=== PATIENT | female | born 1940 | race Caucasian/White ===

== ENCOUNTER 2019-01-04 08:42 | Emergency (ER) | payer MEDICARE ==
--- OUTSIDE RECORDS SUMMARY | 2019-01-04 08:59 | XMS REPORT | Continuity of Care Document ---
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 Provider Date Hyperlipidemia Penny Barton MD Onset: 11/04/2017 Sarcoidosis Penny Barton MD Onset: 11/04/2017 Chronic atrial fibrillation Drew Wilson M.D., [facility] Onset: 03/19/2018 Social History Type Date Description Comments Sex Unknown Tobacco Use Start: Unknown Never Smoked Cigarettes Did try when she was young Smoking Status Reviewed: 11/19/18 Never Smoked Cigarettes Did try when she was young ETOH Use Rarely consumes alcohol Recreational Drug Use Denies Drug Use Tobacco Use Start: Unknown Patient denies history of smoking Exercise Type/Frequency Exercises regularly Allergies, Adverse Reactions, Alerts Active Allergies Reaction Severity Comments Date Adhesives Rash and blisters 11/05/2016 Environmental 11/04/2017 Montelukast unable to sleep 03/16/2018 Medications Active Medications SIG Qnty Indications Ordering Date Provider Freestyle Lite Blood fasting bs in am. 1units E11.9 Mick, Penny, 2018 Glucose Monitoring blood sugar 2 MD System hour after meals Device twice daily dx: e11.9 Freestyle Lancets fasting bs in am. 100units E11.9 Mick, Penny, 2018 2 hour after MD Misc meals twice daily dx: e11.9 Freestyle Lite Test fasting bs in am. 100units E11.9 Mick, Penny, 2018 blood sugar 2 MD Strips hour after meals twice daily dx: e11.9 Temazepam take one capsule 30caps G47.09 Mick, Penny, 08/25/2018 7.5mg at night for MD Capsules sleep as needed ref # [id number] Cetirizine HCL one daily by 30tabs J30.89 Kimani Munoz MD 06/30/2018 10mg mouth Tablets Eliquis Take One Tablet 60tabs Drew Wilson 03/19/2018 5mg Tablets By Mouth Twice A M.Rudy, [facility] Day Omeprazole 1 by mouth every 90caps Gagen, 20mg day MS Xochilt, Capsules DR MOBLEY, [facility] Lovastatin Take One Tablet 90tabs Mick, Penny, 20mg By Mouth Every MD Tablets Day Furosemide take one tablet 90tabs Mick, Penny, 20mg by mouth every MD Tablets day Fluticasone spray two sprays 16gm Kimani Munoz MD Propionate in each nostril 50mcg/Act twice daily Suspension History Medications Amoxicillin 1 tab by mouth 20tabs J01.90 Mick, Penny, 05/27/2018 - 875mg twice a day 06/16/2018 Tablets Medications Administered in Office Medication SIG Qnty Indications Ordering Provider Date Methylprednisolone acetate Reshma Carroll, 08/14/2017 (Depomedrol) 80mg injection [facility] Injection Depomedrol 40mg/1cc Reshma Carroll, 11/05/2016 (methylprednisolone acetate) [facility] Injection Immunizations Description No Information Available Vital Signs Date Vital Result Comment 11/19/2018 11:08am BP Systolic 121 mmHg BP Diastolic 75 mmHg Body Temperature 97.4 F Heart Rate 81 /min Respiratory Rate 18 /min Height 64.5 inches 5'4.50" Weight 165.25 lb BMI (Body Mass Index) 27.9 kg/m2 BSA (Body Surface Area) 1.81 m2 [place] body weight in kilograms 56 kg O2 % BldC Oximetry 99 % Ra 09/25/2018 10:12am BP Systolic Sitting Right Arm 106 mmHg BP Diastolic Sitting Right Arm 58 mmHg Body Temperature 97.0 F Heart Rate 82 /min Respiratory Rate 20 /min Height 64.5 inches 5'4.50" Weight 160.00 lb BMI (Body Mass Index) 27.0 kg/m2 BSA (Body Surface Area) 1.79 m2 Castana body weight in kilograms 56 kg O2 % BldC Oximetry 98 % ra Results Test Date Facility Test Result H/L Range Note Glycohemoglobin A1c [facility] Glycohemoglobin 6.4 % High 4.2-6.3 1 , [address] (A1c) [place], [place] [id number] [phone] eAG 137 mg/dL Urine Dipstick 08/25/2018 [facility] Ua Color yellow Yellow Ua Clarity clear Clear Ua Leuko negative Negative Ua Nitrite negative Negative Ua Urobilinogen negative Low 0.2 - 1.0 E.U./dL Ua Protein negative Negative Ua PH 5.0 Low 6.5-7.5 Ua Blood negative Negative Ua Specific [place] 1.015 1.010-1.030 Ua Ketones negative Negative Ua Bilirubin negative Negative Ua Glucose negative Negative Microalb/Creat 08/25/2018 [facility] Microalbumin/Creatinine TNP < 3, Ratio,Random [address] Ratio ug/mgCrt 30.0 4 [place] [address] [phone] Urine Creatinine Conc 10 mg/dL Microalbumin,Random 08/25/2018 [facility] Microalbumin,Urine < 5.0 < Urine [address] mg/L 20.0 [place] [address] [phone] Glycohemoglobin A1c 07/29/2018 [facility] Glycohemoglobin 6.5 % High 4.2-6 5, [address] (A1c) .3 6 [place] [address] [phone] eAG 140 mg/dL Comprehensive 07/29/2018 [facility] Glucose 103 mg/dL Normal 74-106 Metabolic Panel [address] [place] [address] [phone] BUN 13 mg/dL Normal 7-18 Creatinine 0.8 mg/dL Normal 0.6-1.3 Glom Filtration Rate, Estimate >60 mL/min >60 If >60 mL/min >60 7 BUN/Creat 16.2 ratio Sodium 140 mmol/L Normal 136-145 Potassium 3.8 mmol/L Normal 3.5-5.1 Chloride 105 mmol/L Normal 98-107 Carbon Dioxide 30 mmol/L Normal 21-32 Anion Gap 5 mEq/L Low 8-16 Calcium 9.3 mg/dL Normal 8.5-10.1 Total Protein 7.1 g/dL Normal 6.4-8.2 Albumin 3.7 g/dL Normal 3.4-5.0 Globulin 3.4 g/dL Normal 1.9-4.3 Alb/Glob 1.1 ratio Bilirubin,Total 0.6 mg/dL Normal 0.2-1.0 Sgot/Ast 19 U/L Normal 15-37 SGPT/Alt 22 U/L Normal 12-78 Alkaline Phosphatase 90 U/L Normal 45-117 LDL Cholesterol Profile 07/29/2018 [facility] Cholesterol 146 mg/dL <[address] [place], [place] [id number] [phone] Triglycerides 86 mg/dL <150 9 HDL Cholesterol 75 mg/dL >40 10 LDL-Cholesterol 54 mg/dL < 100 11 Reflex add FT3? N Reflex add FT4? Y CBC W/Automated 07/29/2018 [facility] White Blood 3.9 K/uL Normal 3.1-10.[address] Count [place], [place] [id number] [phone] Red Blood Count 4.57 M/uL Normal 3.90-5.40 Hemoglobin 13.1 gm/dL Normal 11.6-15.8 Hematocrit 39.5 % Normal 36.0-46.1 Mean Cell Volume 86.4 fl Normal 80.9-99.0 Mean Corpuscular HGB 28.7 pg Normal 25.9-32.7 Mean Corpuscular HGB Conc 33.2 g/dL Normal 30.8-34.3 Platelet Count 195 K/uL Normal 155-360 Red Cell Distri Width SD 46.9 fl Normal 36-47 Red Cell Distri Width %CV 14.8 % High 11.7-14.4 Mean Platelet Volume 12.7 fl High 8.9-12.4 Neut% 50.9 % Normal 40.4-72.8 Lymph % 31.2 % Normal 20.0-42.0 Gila % 7.4 % Normal 4.3-13.2 Eo% 8.9 % High 0.0-6.6 Bas% 1.3 % High 0.0-1.1 Immature Grans 0.3 % Normal 0.0-5.0 NRBC % 0.0 /100WBC < 10/ 100 WBC Neut# 2.01 K/uL Normal 1.8-7.0 Lymph # 1.23 K/uL Normal 1.0-4.0 Gila # 0.29 K/uL Low 0.3-0.9 Eos # 0.35 K/uL Normal 0.0-0.5 Baso # 0.05 K/uL Normal 0.0-0.1 Immature Grans Absolute 0.01 K/uL NRBC # 0.00 K/uL TSH Reflex 07/29/2018 [facility] Thyroid Stim 2.37 uIU/mL Normal 0.30-4.20 FT4 And/Or [address] Hormone FT3 [place] [address] [phone] Reflex add FT3? N Reflex add FT4? Y Laboratory 07/29/2018 [facility] Vitamin 50.0 30.0-100.0 12 test finding [address] D,25-Hydroxy ng/[place] [address] [phone] CBC 06/09/2018 N2N/CCD Import WBC 4.0 Low 4.1 - 11.0 10*3/uL RBC 4.05 10*6/uL 4.00 - 5.40 Hemoglobin 11.6 g/dL Low 12.0 - 16.0 Hematocrit 34.3 % Low 36.0 - 47.0 MCV 84.7 fL 80.0 - 95.0 MCH 28.7 pg 27.0 - 32.0 MCHC 33.9 g/dL 32.0 - 36.0 RDW 15.0 % High 10.5 - 14.5 Platelets 136 10*3/uL Low 150 - 450 MPV 10.8 fL High 7.1 - 10.7 Troponin I 06/09/2018 N2N/CCD Import Troponin I <0.06 0.00 - 0.10 ng/mL Basic metabolic 06/09/2018 N2N/CCD Import Sodium 145 mmol/L 136 - 145 panel Potassium 4.1 mmol/L 3.6 - 5.2 Chloride 112 mmol/L High 100 - 108 Co2 26 mmol/L 22 - 31 Anion Gap 7 mmol/L 7 - 16 Urea nitrogen 13 mg/dL 7 - 24 Creatinine 0.73 mg/dL 0.60 - 1.00 BUN/Creatinine Ratio 17.8 10.0 - 20.0 Ratio Glucose 112 mg/dL High 70 - 99 Calcium 8.9 mg/dL 8.4 - 10.2 GFR MDRD Non Af Amer >60 >59 ml/min/1.73m2 GFR MDRD Af Amer >60 >59 ml/min/1.73m2 Glom Filt Rate, Est See Notes Echo Transthoracic (Tte) 06/09/2018 N2N/CCD Import Bsa 1.82 m2 Pt Height 1.64 m Weight 75.75 kg Systolic BP Echo 143.00 mmHg Diastolic BP Echo 83.00 mmHg Av regurgitation pressure 1/2 time 482.00 ms Aortic Regurgitation Peak Velocity 1.94 m/s Ao peak remy 1.74 m/s Av peak gradient 12.00 mmHg Av mean gradient 5.00 mmHg Aortic valve velocity time integral 30.70 cm Aortic valve mean velocity 1.00 m/s Ivs 1.24 cm 0.6 - 1.1 Lvidd 4.04 cm 3.5 - 6.0 Lvids 2.33 cm 2.1 - 4.0 Lvot mn grad 2.0 mmHg Lvot peak Vti 17.10 cm Lvot Mean Remy 0.60 m/s Lvot peak remy 0.91 m/s Av Lvot peak gradient 3.00 mmHg PW 1.22 cm 0.6 - 1.1 MV E' Lateral Tissue Remy 0.11 m/s LV Systolic Volume 12.60 cm3 [place] MR Peak Velocity 0.94 m/s MV peak gradient 8.00 mmHg MV mean gradient 3.00 mmHg MV Vti 44.30 cm pv mean gradient 2.00 mmHg pv Mean Remy 0.62 m/s pv Peak Velocity 0.98 m/s pv peak gradient 4.00 mmHg Right Atrium Pressure 10.00 mmHg RVDD 2.64 cm Estimated r vent sys pressure by tricuspid regurg jet 31.00 mmHg Tricuspid valve peak regurgitation velocity 2.29 m/s Triscuspid Valve Regurgitation Peak Gradient 21.0 mmHg FS 42 % 28 - 44 Ef 72 % Av Velocity Ratio 0.52 LV Systolic Volume Index 6.9 mL/m2 Poct troponin 06/08/2018 N2N/CCD Import Poc Troponin I <0.02 0.00 - 0.10 ng/mL Hepatic function 06/08/2018 N2N/CCD Import Protein, Total 6.7 g/dL 6.4 - 8.2 panel Albumin 3.8 g/dL 3.2 - 4.5 Globulin 2.9 g/dL 2.7 - 4.3 Alb/Glob ratio 1.3 Ratio Bilirubin, Total 0.9 mg/dL 0.0 - 1.0 Bilirubin, Direct 0.2 mg/dL 0.0 - 0.3 Bilirubin, Indirect 0.7 mg/dL 0.0 - 0.7 Alkaline Phosphatase 86 U/L 45 - 117 Ast 24 U/L 11 - 39 Alt 24 U/L 12 - 78 Magnesium 06/08/2018 N2N/CCD Import Magnesium 2.1 mg/dL 1.7 - 2.4 NT-proBNP 06/08/2018 N2N/VasSol Import NT-pro BNP 1718 pg/mL High 0 - 450 CBC w/ diff 06/08/2018 N2N/VasSol Import WBC 4.1 10*3/uL 4.1 - 11.0 RBC 4.32 10*6/uL 4.00 - 5.40 Hemoglobin 12.5 g/dL 12.0 - 16.0 Hematocrit 36.8 % 36.0 - 47.0 MCV 85.2 fL 80.0 - 95.0 MCH 29.1 pg 27.0 - 32.0 MCHC 34.1 g/dL 32.0 - 36.0 RDW 15.1 % High 10.5 - 14.5 Platelets 145 10*3/uL Low 150 - 450 MPV 11.5 fL High 7.1 - 10.7 Neutrophils % 62.4 % 35.0 - 75.0 Lymphocytes Relative 21.3 % 16.0 - 52.0 Monocytes Relative 7.6 % 0.0 - 8.0 Eosinophils Relative 7.3 % High 0.0 - 5.0 Basophils Relative 1.4 % 0.0 - 4.0 Neutrophils Absolute 2.6 10*3/uL 1.8 - 7.7 Lymphocytes Absolute 0.9 10*3/uL Low 1.2 - 4.8 Monocytes Absolute 0.3 10*3/uL 0.0 - 0.8 Eosinophils Man 0.3 10*3/uL 0.0 - 0.5 Basophils Absolute 0.1 10*3/uL 0.0 - 0.2 Poct I-Stat Chem 8 06/08/2018 N2N/CCD Import Poc Sodium 143 136 - 145 Mmol/L Poc Potassium 3.9 3.6 - 5.2 Mmol/L Poc Chloride 107 100 - 108 Mmol/L Poc Co2 24 22 - 31 Mmol/L Poc Anion Gap 12 7 - 16 Mmol/L Poc BUN 8 7 - 24 MG/DL Poc Creatinine 0.6 0.6 - 1.0 MG/DL Poc BUN/Creatinine Ratio 13.3 10.0 - 20.0 Ratio Poc Glucose (iStat) 112 High 70 - 99 MG/DL Poc Ionized Calcium 5.2 4.6 - 5.3 MG/DL Poc GFR >60 >59 ml/min/1.73m2 Poc GFR () >60 >59 ml/min/1.73m2 Poc GFR Interpretation --------- Poc Hematocrit 39 % 36.0 - 47.0 Performed by: Performed By [facility] Clinical Staff 1 E78.5 2 Elevated levels of HbA1c suggest the need for more aggressive treatment of glycemia. The [place] [employer] recommends that a primary goal of therapy should be a HbA1c of <7% and that physicians should re-evaluate the treatment regimen in patients with HbA1c values consistently >8%. 3 E11.9 4 Valid ratio could not be calculated due to non-numeric result. 5 R73.9 E78.5 E04.1 R06.2 I48.91 6 Elevated levels of HbA1c suggest the need for more aggressive treatment of glycemia. The [place] [employer] recommends that a primary goal of therapy should be a HbA1c of <7% and that physicians should re-evaluate the treatment regimen in patients with HbA1c values consistently >8%. 7 Note: Persistent reduction for 3 months or more in an eGFR <60 mL/min/1.73 m2 defines CKD. Patients with eGFR values >/=60 mL/min/1.73 m2 may also have CKD if evidence of persistent proteinuria is present. The original MDRD equation for estimated GFR is not valid for patients less than 18 years of age. Additional information may be found at www.kdoqi.org. 8 Reference Guidelines*: Desirable: ........... < 200 mg/dL Borderline High: ..... 200-239 mg/dL High: ................ >= 240 mg/dL * The National Cholesterol Education Program (NCEP) 9 Reference Guidelines*: Normal: ............. < 150 mg/dL Borderline High: .... 150-199 mg/dL High: ............... 200-499 mg/dL Very High: .......... > 500 mg/dL * Source: National Cholesterol Education Program (NCEP) 10 Reference Guidelines*: Low HDL: ..... < 40 mg/dL Normal: ..... 40-60 mg/dL Desirable: ... > 60 mg/dL *The National Cholesterol Education Program(NCEP) 11 Reference Guidelines*: Optimal:........... <100 mg/dL Near Optimal....... 100-129 mg/dL Borderline High.... 130-159 mg/dL High............... 160-189 mg/dL Very High.......... >=190 mg/dL * Source: National Cholesterol Education Program (NCEP) 12 Vitamin D deficiency has been defined by the [place] [employer] and an Endocrine Society practice guideline as a level of serum 25-OH vitamin D less than 20 ng/mL (1,2). The Endocrine Society went on to further define vitamin D insufficiency as a level between 21 and 29 ng/mL (2). 1. IOM ([place] [employer]). 2010. Dietary reference intakes for calcium and D. [place]: The National Academies Press. 2. Vern MF, Maryam NC, Satya-Jose David BEDOYA, et al. Evaluation, treatment, and prevention of vitamin D deficiency: an Endocrine Society clinical practice guideline. JCEM. 2010; 96(7):1911-30. Performed at: [facility] [address] [id number] Crude Unit Operator: Cleo Garcia MD, Phone: [phone] Procedures Date Code Description Status 06/16/2018 78477 Brief Emotional/Behav Assessment W/ Scoring Doc Per Completed Standard Inst 06/05/2018 60628 Dual Pacemaker Programming Anayisis, Review And Report Completed 05/29/2018 65260 Dual Pacemaker Programming Anayisis, Review And Report Completed 05/20/2018 26032 EKG-Tracing And Report Completed 05/12/2018 [id number] Bone Mineral Density Test Completed 02/24/2017 [id number] Colonoscopy Completed 02/24/2017 [id number] Mammogram Completed 03/01/2015 [id number] Mammogram Completed Medical Devices Description No Information Available Encounters Type Date Location Provider Dx Diagnosis Office Visit 09/25/2018 Primary Care [place], E11.9 Type 2 diabetes 10:30a Office MS Xochilt, mellitus without [facility], CNM complications M25.561 Pain in right knee I83.91 Asymptomatic varicose veins of right lower extremity Z71.9 Counseling, unspecified Office Visit 09/03/2018 10:30a Primary Care Nurse Internal E11.9 Type 2 diabetes Office Med mellitus without complications Z71.89 Other specified counseling Office Visit 08/25/2018 [facility] [place], E78.5 Hyperlipidemia, 10:30a Office MS Xochilt, unspecified [facility], CNM E04.1 Nontoxic single thyroid nodule D86.0 Sarcoidosis of lung G47.33 Obstructive sleep apnea (adult) (pediatric) R06.02 Shortness of breath E11.9 Type 2 diabetes mellitus without complications G47.00 Insomnia, unspecified Office Visit 06/30/2018 10:00a Pulmonology Yue Irving PA J30.89 Other allergic rhinitis D86.0 Sarcoidosis of lung G47.33 Obstructive sleep apnea (adult) (pediatric) Office Visit 06/16/2018 10:00a Primary Care Xochilt Abdul, R06.02 Shortness of Office MS, [facility], CNM breath R07.89 Other chest pain F32.9 Major depressive disorder, single episode, unspecified Office Visit 05/27/2018 11:00a Primary Care [place], J01.90 Acute sinusitis, Office MS Xochilt, unspecified [facility], CNM J06.9 Acute upper respiratory infection, unspecified Office Visit 05/20/2018 Cardiology Lety Brink I48.2 Chronic atrial 2:40p Office YESSICA Grady, fibrillation [facility] Z95.0 Presence of cardiac pacemaker I36.1 Nonrheumatic tricuspid (valve) insufficiency I65.23 Occlusion and stenosis of bilateral carotid arteries Assessments Date Code Description Provider 11/19/2018 R07.0 Pain in throat Hamzah Velez MD 09/25/2018 E11.9 Type 2 diabetes mellitus without GagXochilt durham, , [facility], complications [facility] 09/25/2018 M25.561 Pain in right knee Lesli Abdulpriscila , [facility], CN 09/25/2018 I83.91 Asymptomatic varicose veins of right Xochilt Abdul, , [facility], lower extremity CN 09/25/2018 Z71.9 Counseling, unspecified Xochilt Abdul, , [facility], [facility] 09/03/2018 E11.9 Type 2 diabetes mellitus without Penny Barton MD complications 09/03/2018 E11.9 Type 2 diabetes mellitus without Nurse Internal Med complications 09/03/2018 Z71.89 Other specified counseling Penny Barton MD 09/03/2018 Z71.89 Other specified counseling Nurse Internal Med 08/25/2018 E78.5 Hyperlipidemia, unspecified Xochilt Abdul, , [facility], CN 08/25/2018 E04.1 Nontoxic single thyroid nodule Xochilt Abdul MS, [facility] , [facility] 08/25/2018 D86.0 Sarcoidosis of lung Xochilt Abdul MS, [facility], [facility] 08/25/2018 G47.33 Obstructive sleep apnea (adult) Xochilt Abdul , [facility], (pediatric) [facility] 08/25/2018 R06.02 Shortness of breath Xochilt Abdul, , [facility], CN 08/25/2018 E11.9 Type 2 diabetes mellitus without GagVentura durhamXochilt, MS, [facility], complications [facility] 08/25/2018 G47.00 Insomnia, unspecified [place] Xochilt, , [facility], CN 06/30/2018 J30.89 Other allergic rhinitis Yue Irving PA 06/30/2018 D86.0 Sarcoidosis of lung Yue Irving PA 06/30/2018 G47.33 Obstructive sleep apnea (adult) Yue Irving PA (pediatric) 06/16/2018 R06.02 Shortness of breath Xochilt Abdul MS, [facility], [facility] 06/16/2018 R07.89 Other chest pain Xochilt Abdul MS, [facility], [facility] 06/16/2018 F32.9 Major depressive disorder, single Xochilt Abdul, , [facility], episode, unspecified [facility] 06/05/2018 Z95.0 Presence of cardiac pacemaker Drew Wilson M.D., [facility] 06/05/2018 Z95.0 Presence of cardiac pacemaker Lety Brink MSN, [facility] 06/05/2018 I48.2 Chronic atrial fibrillation Drew Wilson M.D., [facility] 06/05/2018 I48.2 Chronic atrial fibrillation Lety Brink MSN, [facility] 05/29/2018 Z95.0 Presence of cardiac pacemaker Drew Wilson M.D., [facility] 05/29/2018 Z95.0 Presence of cardiac pacemaker Lety Brink, YESSICA, [facility] 05/29/2018 I49.5 Sick sinus syndrome Drew Wilson M.D., [facility] 05/29/2018 I49.5 Sick sinus syndrome Lety Brink MSN, [facility] 05/27/2018 J01.90 Acute sinusitis, unspecified Xochilt Abdul, , [facility], [facility] 05/27/2018 J06.9 Acute upper respiratory infection, Xochilt Abdul, , [facility], unspecified [facility] 05/20/2018 I48.2 Chronic atrial fibrillation Lety Brink MSN, [facility] 05/20/2018 Z95.0 Presence of cardiac pacemaker Lety Brink MSN, [facility] 05/20/2018 I36.1 Nonrheumatic tricuspid (valve) Lety Brink MSN, insufficiency [facility] 05/20/2018 I65.23 Occlusion and stenosis of bilateral BrinkLety kelsey MSN, carotid arteries [facility] Plan of Treatment Future Appointment(s):01/01/2019 10:00 am - Xochilt Abdul MS, [facility], [facility] at [facility] [id number]/30/2019 10:00 am - Yue Irving PA at [id number]/ 26/2019 - Hamzah Velez, MDR07.0 Pain in throatNew Labs:Throat Culture Complete, Ordered: 11/19/18 Functional Status Functional Condition Comment Date Status Independent with all ADL's Active Glasses Active Mental Status Description No Information Available Referrals Description No Information Available
--- OUTSIDE RECORDS SUMMARY | 2019-01-04 08:59 | XMS REPORT | Continuity of Care Document ---
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 100units E11.9 Mick Penny, 2018 blood sugar 2 MD Strips hour after meals twice daily dx: e11.9 Temazepam take one capsule 30caps G47.09 Mick, Penny, 08/25/2018 7.5mg at night for MD Capsules sleep as needed ref # [id number] Cetirizine HCL one daily by 30tabs J30.89 Kimani Munoz MD 06/30/2018 10mg mouth Tablets Eliquis Take One Tablet 60tabs Drew Wilson 03/19/2018 5mg Tablets By Mouth Twice A M., Rudy, [facility] Day Omeprazole 1 by mouth every 90caps Adama, Bryanna, 20mg day , PHD Capsules DR Lovastatin take one tablet 90tabs Kincaid, Bryanna, 20mg by mouth every , PHD Tablets day Furosemide take one tablet 90tabs Mick, Penny, 20mg by mouth every Tablets day Fluticasone spray two sprays 16gm AdamaAzulBryanna, Propionate in each nostril , PHD 50mcg/Act twice daily Suspension Medications Administered in Office Medication SIG Qnty Indications Ordering Provider Date Depomedrol 40mg/1cc Reshma Carroll, 12/08/2018 (methylprednisolone acetate) [facility] Injection Methylprednisolone acetate Reshma Carroll, 08/14/2017 (Depomedrol) 80mg injection [facility] Injection Depomedrol 40mg/1cc Reshma Carroll, 11/05/2016 (methylprednisolone acetate) [facility] Injection Immunizations Description No Information Available Vital Signs Date Vital Result Comment 12/08/2018 1:34pm BP Systolic 113 mmHg BP Diastolic 73 mmHg Body Temperature 96.5 F Heart Rate 79 /min Height 63.5 inches 5'3.50" Weight 163.00 lb BMI (Body Mass Index) 28.4 kg/m2 BSA (Body Surface Area) 1.78 m2 [place] body weight in kilograms 53 kg O2 % BldC Oximetry 99 % 11/19/2018 11:08am BP Systolic 121 mmHg BP Diastolic 75 mmHg Body Temperature 97.4 F Heart Rate 81 /min Respiratory Rate 18 /min Height 64.5 inches 5'4.50" Weight 165.25 lb BMI (Body Mass Index) 27.9 kg/m2 BSA (Body Surface Area) 1.81 m2 [place] body weight in kilograms 56 kg O2 % BldC Oximetry 99 % Ra Results Test Date Facility Test Result H/L Range Note Throat Culture 11/20/19 [facility] [address] Throat Culture NORMAL 1, 2 Complete [address] [place] [address] <SEE [phone] NOTE> Glycohemoglobin A1c 09/18/19 [facility] Glycohemoglobin 6.4 % High 4.2-6.3 3, [address] (A1c) [place] [address] [phone] eAG 137 mg/dL Urine Dipstick 08/25/2018 [facility] Inhouse Ua Color yellow Yellow Ua Clarity clear Clear Ua Leuko negative Negative Ua Nitrite negative Negative Ua Urobilinogen negative Low 0.2 - 1.0 E.U./dL Ua Protein negative Negative Ua PH 5.0 Low 6.5-7.5 Ua Blood negative Negative Ua Specific [place] 1.015 1.010-1.030 Ua Ketones negative Negative Ua Bilirubin negative Negative Ua Glucose negative Negative Microalb/Creat 08/25/2018 [facility] Microalbumin/Creatinine TNP < 5, Ratio,Random [address] Ratio ug/mgCrt 30.0 6 [place], [place] [id number] [phone] Urine Creatinine Conc 10 mg/dL Microalbumin,Random 08/25/2018 [facility] Microalbumin,Urine < 5.0 < Urine [address] mg/L 20.0 [place] [address] [phone] Glycohemoglobin A1c 07/29/2018 [facility] Glycohemoglobin 6.5 % High 4.2-6 7, [address] (A1c) .3 8 [place], [place] [id number] [phone] eAG 140 mg/dL Comprehensive 07/29/2018 [facility] Glucose 103 mg/dL Normal 74-106 Metabolic Panel [address] [place], [place] [id number] [phone] BUN 13 mg/dL Normal 7-18 Creatinine 0.8 mg/dL Normal 0.6-1.3 Glom Filtration Rate, Estimate >60 mL/min >60 If >60 mL/min >60 9 BUN/Creat 16.2 ratio Sodium 140 mmol/L Normal [...] U/L Normal 45-117 LDL Cholesterol Profile 07/29/2018 [facility] Cholesterol 146 mg/dL <[address] [place] [address] [phone] Triglycerides 86 mg/dL <150 11 HDL Cholesterol 75 mg/dL >40 12 LDL-Cholesterol 54 mg/dL < 100 13 Reflex add FT3? N Reflex add FT4? Y CBC W/Automated 07/29/2018 [facility] White Blood 3.9 K/uL Normal 3.1-10.[address] [place] [address] [phone] Red Blood Count 4.57 M/uL Normal 3.90-5.40 [...] 40.4-72.8 Lymph % 31.2 % Normal 20.0-42.0 [place] % 7.4 % Normal 4.3-13.2 Eo% 8.9 % High 0.0-6.6 Bas% 1.3 % High 0.0-1.1 Immature Grans 0.3 % Normal 0.0-5.0 NRBC % 0.0 /100WBC < 10/ 100 WBC Neut# 2.01 K/uL Normal 1.8-7.0 Lymph # 1.23 K/uL Normal 1.0-4.0 [place] # 0.29 K/uL Low 0.3-0.9 Eos # 0.35 K/uL Normal 0.0-0.5 Baso # 0.05 K/uL Normal 0.0-0.1 Immature Grans Absolute 0.01 K/uL NRBC # 0.00 K/uL TSH Reflex 07/29/2018 [facility] Thyroid Stim 2.37 uIU/mL Normal 0.30-4.20 FT4 And/Or [address] Hormone FT3 [place] [address] [phone] Reflex add FT3? N Reflex add FT4? Y Laboratory test 07/29/2018 [facility] Vitamin 50.0 30.0-100.0 [address] D,25-Hydroxy ng/[place] [address] [phone] Echo 06/09/2018 N2N/CCD Import Bsa 1.82 m2 Transthoracic (Tte) Pt Height 1.64 m Weight 75.75 kg [...] 0.52 LV Systolic Volume Index 6.9 mL/m2 Basic metabolic panel 06/09/2018 N2N/CCD Import Sodium 145 mmol/L 136 - 145 Potassium 4.1 mmol/L 3.6 - 5.2 Chloride [...] ml/min/1.73m2 Glom Filt Rate, Est See Notes Troponin I 06/09/2018 N2N/CCD Import Troponin I <0.06 0.00 - 0.10 ng/mL CBC 06/09/2018 N2N/CCD Import WBC 4.0 10*3/uL Low 4.1 - 11.0 RBC 4.05 10*6/uL 4.00 - 5.40 Hemoglobin 11.6 g/dL Low 12.0 - 16.0 Hematocrit 34.3 % Low 36.0 - 47.0 MCV 84.7 fL 80.0 - 95.0 MCH 28.7 pg 27.0 - 32.0 MCHC 33.9 g/dL 32.0 - 36.0 RDW 15.0 % High 10.5 - 14.5 Platelets 136 10*3/uL Low 150 - 450 MPV 10.8 fL High 7.1 - 10.7 1 R07.0 2 NORMAL THROAT [place] 3 E78.5 4 Elevated levels of HbA1c suggest the need for more aggressive treatment of glycemia. The [place] [employer] recommends that a primary goal of therapy should be a HbA1c of <7% and that physicians should re-evaluate the treatment regimen in patients with HbA1c values consistently >8%. 5 E11.9 6 Valid ratio could not be calculated due to non-numeric result. 7 R73.9 E78.5 E04.1 R06.2 I48.91 8 Elevated levels of HbA1c suggest the need for more aggressive treatment of glycemia. The [place] [employer] recommends that a primary goal of therapy should be a HbA1c of <7% and that physicians should re-evaluate the treatment regimen in patients with HbA1c values consistently >8%. 9 Note: Persistent reduction for 3 months or more in an eGFR <60 mL/min/1.73 m2 defines CKD. Patients with eGFR values >/=60 mL/min/1.73 m2 may also have CKD if evidence of persistent proteinuria is present. The original MDRD equation for estimated GFR is not valid for patients less than 18 years of age. Additional information may be found at www.kdoqi.org. 10 Reference Guidelines*: Desirable: ........... < 200 mg/dL Borderline High: ..... 200-239 mg/dL High: ................ >= 240 mg/dL * The National Cholesterol Education Program (NCEP) 11 Reference Guidelines*: Normal: ............. < 150 mg/dL Borderline High: .... 150-199 mg/dL High: ............... 200-499 mg/dL Very High: .......... > 500 mg/dL * Source: National Cholesterol Education Program (NCEP) 12 Reference Guidelines*: Low HDL: ..... < 40 mg/dL Normal: ..... 40-60 mg/dL Desirable: ... > 60 mg/dL *The National Cholesterol Education Program(NCEP) 13 Reference Guidelines*: Optimal:........... <100 mg/dL Near Optimal....... 100-129 mg/dL Borderline High.... 130-159 mg/dL High............... 160-189 mg/dL Very High.......... >=190 mg/dL * Source: National Cholesterol Education Program (NCEP) 14 Vitamin D deficiency has been defined by the [place] of [employer] and an Endocrine Society practice guideline as a level of serum 25-OH vitamin D less than 20 ng/mL (1,2). The Endocrine Society went on to further define vitamin D insufficiency as a level between 21 and 29 ng/mL (2). 1. IOM ([place] of [employer]). 2010. Dietary reference intakes for calcium and D. [place]: The National Academies Press. 2. Vern MF, Maryam NC, Ihsan BEDOYA, et al. Evaluation, treatment, and prevention of vitamin D deficiency: an Endocrine Society clinical practice guideline. JCEM. 2010; 96(7):1911-30. Performed at: RN - [facility] [address] [id number] Station Baggage Porter: Cleo Garcia MD, Phone: [phone] Procedures Date Code Description Status 12/08/2018 Injection:Tendon Sheath,Lig. Cyst Completed 12/08/2018 Injection:Tendon Sheath,Lig. Cyst Completed 06/16/2018 64729 Brief Emotional/Behav Assessment W/ Scoring Doc Per Completed Standard Inst 05/12/2018 [id number] Bone Mineral Density Test Completed 02/24/2017 [id number] Colonoscopy Completed 02/24/2017 [id number] Mammogram Completed 03/01/2015 [id number] Mammogram Completed Medical Devices Description No Information Available Encounters Type Date Location Provider Dx Diagnosis Office Visit 12/08/2018 Orthopaedic Office Reshma Carroll M65.332 Trigger finger, 1:45p S., RPAC left middle finger M65.341 Trigger finger, right ring finger Office Visit 11/19/2018 11:30a Family Medicine Hamzah Velez, R07.0 Pain in throat [place] GENEVIEVE RANGEL Office Visit 09/25/2018 10:30a Primary Care [place], E11.9 Type 2 diabetes Office Xochilt, mellitus without MS, VP DESIGN-C, complications CNM M25.561 Pain in right knee I83.91 Asymptomatic varicose veins of right lower extremity Z71.9 Counseling, unspecified Office Visit 09/03/2018 10:30a Primary Care Nurse Internal E11.9 Type 2 diabetes Office Med mellitus without complications Z71.89 Other specified counseling Office Visit 08/25/2018 Primary Care [place], E78.5 Hyperlipidemia, 10:30a Office Xochilt, MS, unspecified VP DESIGN-C, CNM E04.1 Nontoxic single thyroid nodule D86.0 [...] Xochilt Abdul, R06.02 Shortness of Office MS, VP DESIGN-C, CNM breath R07.89 Other chest pain F32.9 Major depressive disorder, single episode, unspecified Assessments Date Code Description Provider 12/08/2018 M65.332 Trigger finger, left middle finger Reshma Carroll, [facility] 12/08/2018 M65.341 Trigger finger, right ring finger Reshma Carroll, [facility] 11/19/2018 R07.0 Pain in throat Hamzah Velez MD 09/25/2018 E11.9 Type 2 diabetes mellitus without Gagmarva, Xochilt, MS, VP DESIGN -C, complications CN 09/25/2018 M25.561 Pain in right knee Gagen, Xochilt, MS, VP DESIGN-C, CNM 09/25/2018 I83.91 Asymptomatic varicose veins of right Gagen, Xochilt, MS , VP DESIGN-C, lower extremity CNM 09/25/2018 Z71.9 Counseling, unspecified Xochilt Abdul, MS, VP DESIGN-C, CNM 09/03/2018 E11.9 Type 2 diabetes mellitus without Penny Barton MD complications 09/03/2018 E11.9 Type 2 diabetes mellitus without Nurse Internal Med complications 09/03/2018 Z71.89 Other specified counseling Penny Barton MD 09/03/2018 Z71.89 Other specified counseling Nurse Internal Med 08/25/2018 E78.5 Hyperlipidemia, unspecified GagXochilt durham, MS, VP DESIGN-C, CNM 08/25/2018 E04.1 Nontoxic single thyroid nodule Xochilt Abdul, MS, VP DESIGN-C , CNM 08/25/2018 D86.0 Sarcoidosis of lung Xochilt Abdul, MS, VP DESIGN-C, CNM 08/25/2018 G47.33 Obstructive sleep apnea (adult) Xochilt Abdul, MS, VP DESIGN -C, (pediatric) CN 08/25/2018 R06.02 Shortness of breath Xochilt Abdul, MS, VP DESIGN-C, CNM 08/25/2018 E11.9 Type 2 diabetes mellitus without Gagen, Xochilt, MS, VP DESIGN -C, complications CNM 08/25/2018 G47.00 Insomnia, unspecified GagXochilt durham, MS, VP DESIGN-C, CNM 06/30/2018 J30.89 Other allergic rhinitis Yue Irving PA 06/30/2018 D86.0 Sarcoidosis of lung Yue Irving PA 06/30/2018 G47.33 Obstructive sleep apnea (adult) Yue Irving PA (pediatric) 06/16/2018 R06.02 Shortness of breath Xochilt Abdul, MS, VP DESIGN-C, CNM 06/16/2018 R07.89 Other chest pain Xochilt Abdul, MS, VP DESIGN-C, CNM 06/16/2018 F32.9 Major depressive disorder, single Lauraen, Xochilt, MS, VP DESIGN-C, episode, unspecified CNM Plan of Treatment Future Appointment(s):01/01/2019 10:00 am - Xochilt Abdul, MS, VP DESIGN-C, CNM at Primary Care Cqlzth0106/30/2019 10:00 am - Yue Irving PA at [id number]/ 15/2019 - Reshma aCrroll, RPACM65.332 Trigger finger, left middle cgtikeL63.341 Trigger finger, right ring finger Functional Status Functional Condition Comment Date Status Independent with all ADL's Active Glasses Active Mental Status Description No Information Available Referrals Description No Information Available
--- OUTSIDE RECORDS SUMMARY | 2019-01-04 08:59 | XMS REPORT | Continuity of Care Document ---
:1940 External Reference #:[id number] Author Name Reshma Carroll, [facility] Address [address] [place] [phone] Care Team Providers Name Role Phone Penny Barton MD - Internal Medicine Care Team Information Leather Softener [phone] Problems Active Problems Provider Date Hyperlipidemia Penny Barton MD Onset: 11/04/2017 Sarcoidosis Penny Barton MD Onset: 11/04/2017 Chronic atrial fibrillation Drew Wilson M.D., [facility] Onset: 03/19/2018 Social History Type Date Description [...] MD Capsules sleep as needed ref # [id number] Cetirizine HCL one daily by 30tabs J30.89 Kimani Munoz MD 06/30/2018 10mg mouth Tablets Eliquis Take One Tablet 60tabs Drew Wilson 03/19/2018 5mg Tablets By Mouth Twice A M., Rudy, [facility] Day Omeprazole 1 by mouth every 90caps Adama, Bryanna, 20mg day , PHD Capsules DR Lovastatin take one tablet 90tabs [place], Bryanna, 20mg by mouth every , PHD Tablets day Furosemide take one tablet 90tabs Mick, Penny, 20mg by mouth every Tablets day Fluticasone spray two sprays 16gm AdamaAzulBryanna, Propionate in each nostril , PHD 50mcg/Act twice daily Suspension Medications Administered in Office Medication SIG Qnty Indications Ordering Provider Date Depomedrol 40mg/1cc Reshma Carroll, 12/08/2018 (methylprednisolone acetate) [facility] Injection Methylprednisolone acetate Reshma Carroll, 08/14/2017 (Depomedrol) [...] kg/m2 BSA (Body Surface Area) 1.78 m2 [place] body weight in kilograms 53 kg O2 % BldC Oximetry 99 % 11/19/2018 11:08am BP Systolic 121 mmHg BP Diastolic 75 mmHg Body Temperature 97.4 F Heart Rate 81 /min Respiratory Rate 18 /min Height 64.5 inches 5'4.50" Weight 165.25 lb BMI (Body Mass Index) 27.9 kg/m2 BSA (Body Surface Area) 1.81 m2 [place] body weight in kilograms 56 kg O2 % BldC Oximetry 99 % Ra Results Test Date Facility Test Result H/L Range Note Throat Culture 11/20/19 [facility] [address] Throat Culture NORMAL 1, 2 Complete [address] [place] [address] <SEE [phone] NOTE> Glycohemoglobin A1c 09/18/19 [facility] Glycohemoglobin 6.4 % High 4.2-6.3 3, [address] (A1c) [place] [address] [phone] eAG 137 mg/dL Urine Dipstick 08/25/2018 [facility] Inhouse Ua Color yellow Yellow Ua Clarity clear Clear Ua Leuko negative Negative Ua Nitrite negative Negative Ua Urobilinogen negative Low 0.2 - 1.0 E.U./dL Ua Protein negative Negative Ua PH 5.0 Low 6.5-7.5 Ua Blood negative Negative Ua Specific [place] 1.015 1.010-1.030 Ua Ketones negative Negative Ua Bilirubin negative Negative Ua Glucose negative Negative Microalb/Creat 08/25/2018 [facility] Microalbumin/Creatinine TNP < 5, Ratio,Random [address] Ratio ug/mgCrt 30.0 6 [place], [place] [id number] [phone] Urine Creatinine Conc 10 mg/dL Microalbumin,Random 08/25/2018 [facility] Microalbumin,Urine < 5.0 < Urine [address] mg/L 20.0 [place] [address] [phone] Glycohemoglobin A1c 07/29/2018 [facility] Glycohemoglobin 6.5 % High 4.2-6 7, [address] (A1c) .3 8 [place], [place] [address] [phone] eAG 140 mg/dL Comprehensive 07/29/2018 [facility] Glucose 103 mg/dL Normal 74-106 Metabolic Panel [address] [place], [place] [address] [phone] BUN 13 mg/dL Normal 7-18 Creatinine 0.8 [...] U/L Normal 45-117 LDL Cholesterol Profile 07/29/2018 [facility] Cholesterol 146 mg/dL <[address] [place] [address] [phone] Triglycerides 86 mg/dL <150 11 HDL Cholesterol 75 mg/dL >40 12 LDL-Cholesterol 54 mg/dL < 100 13 Reflex add FT3? N Reflex add FT4? Y CBC W/Automated 07/29/2018 [facility] White Blood 3.9 K/uL Normal 3.1-10.[address] [place] [address] [phone] Red Blood Count 4.57 M/uL Normal 3.90-5.40 [...] 40.4-72.8 Lymph % 31.2 % Normal 20.0-42.0 [place] % 7.4 % Normal 4.3-13.2 Eo% 8.9 % High 0.0-6.6 Bas% 1.3 % High 0.0-1.1 Immature Grans 0.3 % Normal 0.0-5.0 NRBC % 0.0 /100WBC < 10/ 100 WBC Neut# 2.01 K/uL Normal 1.8-7.0 Lymph # 1.23 K/uL Normal 1.0-4.0 [place] # 0.29 K/uL Low 0.3-0.9 Eos # 0.35 K/uL Normal 0.0-0.5 Baso # 0.05 K/uL Normal 0.0-0.1 Immature Grans Absolute 0.01 K/uL NRBC # 0.00 K/uL TSH Reflex 07/29/2018 [facility] Thyroid Stim 2.37 uIU/mL Normal 0.30-4.20 FT4 And/Or [address] Hormone FT3 [place] [address] [phone] Reflex add FT3? N Reflex add FT4? Y Laboratory test 07/29/2018 [facility] Vitamin 50.0 30.0-100.0 [address] D,25-Hydroxy ng/[place] [address] [phone] Echo 06/09/2018 N2N/CCD Import Bsa 1.82 m2 [...] for more aggressive treatment of glycemia. The [place] Diabetes [employer] recommends that a primary goal [...] for more aggressive treatment of glycemia. The [place] Diabetes [employer] recommends that a primary goal [...] D deficiency has been defined by the [place] of Medicine and an Endocrine Society practice guideline as a level of serum 25-OH vitamin D less than 20 ng/mL (1,2). The Endocrine Society went on to further define vitamin D insufficiency as a level between 21 and 29 ng/mL (2). 1. IOM ([place] of [employer]). 2010. Dietary reference intakes for calcium and D. [place]: The National Academies Press. 2. Vern MF, Maryam NC, Ihsan BEDOYA, et al. Evaluation, treatment, and prevention of vitamin D deficiency: an Endocrine Society clinical practice guideline. JCEM. 2010; 96(7):1911-30. Performed at: RN - [facility] [address] [id number] Toe Trimmer: Cleo Garcia MD, Phone: [phone] Procedures Date Code Description Status 12/08/2018 Injection:Tendon Sheath,Lig. Cyst Completed 12/08/2018 Injection:Tendon Sheath,Lig. Cyst Completed 06/16/2018 11381 Brief Emotional/Behav Assessment W/ Scoring Doc Per Completed Standard Inst 05/12/2018 [id number] Bone Mineral Density Test Completed 02/24/2017 [id number] Colonoscopy Completed 02/24/2017 [id number] Mammogram Completed 03/01/2015 [id number] Mammogram Completed Medical Devices Description No Information Available Encounters Type Date Location Provider Dx Diagnosis Office Visit 11/19/2018 Family Medicine Hamzah Velez MD R07.0 Pain in throat 11:[address] Office Visit 09/25/2018 Primary Care [place], E11.9 Type 2 diabetes 10:30a Office MS Xochilt, mellitus without ARMORED VEHICLE OFFICER-C, CNM complications M25.561 Pain in right knee I83.91 Asymptomatic varicose veins of right lower extremity Z71.9 Counseling, unspecified Office Visit 09/03/2018 10:30a Primary Care Nurse Internal E11.9 Type 2 diabetes Office Med mellitus without complications Z71.89 Other specified counseling Office Visit 08/25/2018 Primary Care [place], E78.5 Hyperlipidemia, 10:30a Office Xochilt, MS, unspecified [employer]ED [employer]LE OFFICER-C, CNM E04.1 Nontoxic single thyroid nodule D86.0 Sarcoidosis of lung G47.33 Obstructive sleep apnea (adult) (pediatric) R06.02 Shortness of breath E11.9 Type 2 diabetes mellitus without complications G47.00 Insomnia, unspecified Office Visit 06/30/2018 10:00a Pulmonology Yue Irving PA J30.89 Other allergic rhinitis D86.0 Sarcoidosis of lung G47.33 Obstructive sleep apnea (adult) (pediatric) Office Visit 06/16/2018 10:00a Primary Care Lesli Abdulline, R06.02 Shortness of Office MS, ARMORED VEHICLE OFFICER-C, CNM breath R07.89 Other chest pain F32.9 Major depressive disorder, single episode, unspecified Assessments Date Code Description Provider 12/08/2018 M65.332 Trigger finger, left middle finger Reshma Carroll, [facility] 12/08/2018 M65.341 Trigger finger, right ring finger Reshma Carroll, [facility] 11/19/2018 R07.0 Pain in throat Hamzah Velez MD 09/25/2018 E11.9 Type 2 diabetes mellitus without Gagmarva, Xochilt, MS, ARM[employer]ED VEHICLE OFFICER -C, complications CN 09/25/2018 M25.561 Pain in right knee Chantell, Xochilt, MS, ARMORED VEHICLE OFFICER-C, CN 09/25/2018 I83.91 Asymptomatic varicose veins of right Lauramarva, Xochilt, MS , ARM[employer]ED VEHICLE OFFICER-C, lower extremity CN 09/25/2018 Z71.9 Counseling, unspecified Lesli Abdulline, MS, ARM[employer] VE[employer]LE OFFICER-C, CNM 09/03/2018 E11.9 Type 2 diabetes mellitus without Penny Barton MD complications 09/03/2018 E11.9 Type 2 diabetes mellitus without Nurse Internal Med complications 09/03/2018 Z71.89 Other specified counseling Penny Barton MD 09/03/2018 Z71.89 Other specified counseling Nurse Internal Med 08/25/2018 E78.5 Hyperlipidemia, unspecified Gagmarva, Xochilt, MS, [employer] VE[employer]LE OFFICER-C, CNM 08/25/2018 E04.1 Nontoxic single thyroid nodule Xochilt Abdul MS, ARM[employer]ED VEHICLE OFFICER-C , CNM 08/25/2018 D86.0 Sarcoidosis of lung Xochilt Abdul MS, ARMORED VEHICLE OFFICER-C, CNM 08/25/2018 G47.33 Obstructive sleep apnea (adult) Xochilt Abdul, , [employer]LE OFFICER -C, (pediatric) CNM 08/25/2018 R06.02 Shortness of breath Xochilt Abdul, , [employer]LE OFFICER-C, CNM 08/25/2018 E11.9 Type 2 diabetes mellitus without GagXochilt durham, MS, ARM[employer]ED VEHICLE OFFICER -C, complications CNM 08/25/2018 G47.00 Insomnia, unspecified Xochilt Abdul, , [employer]LE OFFICER-C, CNM 06/30/2018 J30.89 Other allergic rhinitis Yue Irving, STEFANY 06/30/2018 D86.0 Sarcoidosis of lung Yue Irving PA 06/30/2018 G47.33 Obstructive sleep apnea (adult) Yue Irving PA (pediatric) 06/16/2018 R06.02 Shortness of breath Xochilt Abdul MS, ARMORED VEHICLE OFFICER-C, CNM 06/16/2018 R07.89 Other chest pain Xochilt Abdul MS, ARMORED VEHICLE OFFICER-C, CNM 06/16/2018 F32.9 Major depressive disorder, single Xochilt Abdul, , [employer]ED VEH[employer]LE OFFICER-C, episode, unspecified CNM Plan of Treatment Future Appointment(s):01/01/2019 10:00 am - Xochilt Abdul MS, ARMORED VEHICLE OFFICER-C, CNM at Primary Care [id number]/30/2019 10:00 am - Yue Irving PA at [id number]/ 26/2019 - Hamzah Velez, MDR07.0 Pain in throat Functional Status Functional Condition Comment Date Status Independent with all ADL's Active Glasses Active Mental Status Description No Information Available Referrals Description No Information Available
[2019-01-04 09:10] VITALS: BP 99/85
--- NOTE | 2019-01-04 09:33 | UC ---
GI Bleed HPI - HPI Summary HPI Summary: 78-year-old female resents with complaints of diarrhea and dark black stools. States she has been experiencing diarrhea for approximately the past 5 weeks. One week ago states she took some Metamucil to try to help with the diarrhea developed some severe left upper quadrant pain and noted that her bowel movements were dark and black in color. States she has continued to have the left upper quadrant pain although the color of the stools began to normalize throughout the week until this morning when she again experienced very dark black stools. Patient states she has taken a couple doses of Pepto-Bismol for her symptoms. Last took yesterday. Patient has history of atrial fibrillation and is currently on Eliquis. States she has lost approximately 5 pounds over the last 2 weeks. Has noted some weakness. Denies fever, chills, lightheadedness, dizziness, chest pain, palpitations, shortness of breath, nausea, or vomiting. - History Of Current Complaint Chief Complaint: UCGeneralIllness Stated Complaint: UPSET STOMACH Time Seen by Provider: 01/04/19 09:15 Hx Obtained From: Patient Pain Intensity: 0 - Allergies/Home medications Allergies/Adverse Reactions: Allergies Allergy/AdvReac Type Severity Reaction Status Date / Time nitroglycerin Allergy See Comment Verified 01/04/19 09:00 Home Medications: Home Medications Acetaminophen [Eq 8Hr Arthritis Pain Rel] 650 mg PO Q8H PRN 01/04/19 [History Confirmed 01/04/19] Apixaban* [Eliquis*] 5 mg PO DAILY 01/04/19 [History Confirmed 01/04/19] Biotin [Biotin Gummies] 1,000 mcg PO DAILY 01/04/19 [History Confirmed 01/04/19] C,E,Zinc,Copper 11/Zofpc2q/Lut [Ocuvite Adult 50 Plus Softgel] 1 each PO DAILY 01/04/19 [History Confirmed 01/04/19] Cholecalciferol (Vitamin D3) [D3] 200 unit PO DAILY 01/04/19 [History Confirmed 01/04/19] Furosemide TAB* [Lasix TAB*] 20 mg PO DAILY 01/04/19 [History Confirmed 01/04/19 ] Lovastatin [Altoprev] 20 mg PO DAILY 01/04/19 [History Confirmed 01/04/19] Meclizine TAB* [Antivert 12.5 TAB*] 25 mg PO TID PRN 01/04/19 [History Confirmed 01/04/19] Melatonin 5 mg PO BEDTIME PRN 01/04/19 [History Confirmed 01/04/19] Omeprazole 20 mg PO DAILY 01/04/19 [History Confirmed 01/04/19] Temazepam CAP* [Restoril CAP*] 7.5 mg PO BEDTIME PRN 01/04/19 [History Confirmed 01/04/19] PMH/Surg Hx/FS Hx/Imm Hx Endocrine History: Dyslipidemia Cardiovascular History: Atrial Fibrillation GI/ History: Gastroesophageal Reflux - Surgical History Surgical History: Yes Surgery Procedure, Year, and Place: cardiac ablation. pacer. hysterectomy. knee surg x2. open heart/Mitral valve. carpal tunnel. trigger finger. shoulder surgery/right. [facility] - Family History Known Family History: Positive: Hypertension, Other - GI bleed - father - Social History Occupation: Retired Lives: With Family Alcohol Use: None Substance Use Type: None Smoking Status (MU): Never Smoked Tobacco - Immunization History Most Recent Influenza Vaccination: [id number] Review of Systems All Other Systems Reviewed And Are Negative: Yes Constitutional: Negative: Fever, Chills Skin: Negative: Rash Respiratory: Negative: Shortness Of Breath Cardiovascular: Negative: Palpitations, Chest Pain Gastrointestinal: Positive: Abdominal Pain, Diarrhea. Negative: Vomiting, Nausea Genitourinary: Positive: Negative Musculoskeletal: Positive: Negative Neurological: Positive: Negative Is Patient Immunocompromised?: No Physical Exam - Summary Physical Exam Summary: GENERAL APPEARANCE: Alert and cooperative older adult female who appears to be in no acute distress. EYES: Conjunctiva clear. No drainage. EARS: External auditory canals and tympanic membranes clear, hearing grossly intact. NOSE: No nasal discharge. THROAT: Pharynx normal No tonsilar inflammation, swelling, exudate, or lesions. Uvula midline. Oral cavity normal. Teeth and gingiva in good general condition. NECK: Neck supple, non-tender without lymphadenopathy. CARDIAC: Normal S1 and S2. No S3, S4 or murmurs. Rhythm is regular. There is no peripheral edema, cyanosis or pallor. Extremities are warm and well perfused. Capillary refill is less than 2 seconds. Peripheral pulses intact. LUNGS: Clear to auscultation without rales, rhonchi, wheezing or diminished breath sounds. ABDOMEN: Positive bowel sounds. Soft, nondistended. Mild LUQ tenderness. No guarding or rebound. No masses or hepatosplenomegally. MUSKULOSKELETAL: ROM intact to all extremities. No joint erythema or tenderness. Normal muscular development. Normal gait. SKIN: Generalized pallor. Normal skin texture and turgor with no lesions or eruptions. Triage Information Reviewed: Yes Vital Signs: Initial Vital Signs Temp 97.5 F 01/04/19 09:05 Pulse 79 01/04/19 09:05 Resp 15 01/04/19 09:05 BP 99/85 01/04/19 09:05 Pulse Ox 100 01/04/19 09:05 Vital Signs Reviewed: Yes Bleed Course/Dx - Course Course Of Treatment: 78-year-old female resents with complaints of diarrhea and dark black stools. States she has been experiencing diarrhea for approximately the past 5 weeks. One week ago states she took some Metamucil to try to help with the diarrhea developed some severe left upper quadrant pain and noted that her bowel movements were dark and black in color. States she has continued to have the left upper quadrant pain although the color of the stools began to normalize throughout the week until this morning when she again experienced very dark black stools. Patient states she has taken a couple doses of Pepto-Bismol for her symptoms. Last took yesterday. Patient has history of atrial fibrillation and is currently on Eliquis. States she has lost approximately 5 pounds over the last 2 weeks. Has noted some weakness. Denies fever, chills, lightheadedness, dizziness, chest pain, palpitations, shortness of breath, nausea, or vomiting. Afebrile. Vital signs stable. Patient is in no acute distress, had some generalized pallor, mild left upper quadrant tenderness without guarding or rebound, no masses or hepatosplenomegaly noted, and otherwise unremarkable exam. I discussed with the patient that based on her history I have concerns for a possible gastrointestinal bleed especially with her being on [employer] and I'm recommending that she be evaluated in the emergency room at this time. Patient is agreeable to this and is electing to transport via private vehicle. Discussed case with Senia Clayton NP at [facility]. - Differential Dx/Diagnosis Differential Diagnosis/HQI/PQRI: Cancer, Diverticulitis, Enterocolitis, Gastritis, PUD, Other - GI bleed Provider Diagnosis: Complaint of melena Discharge ED - Sign-Out/Discharge Documenting (check all that apply): Patient Departure All imaging exams completed and their final reports reviewed: No Studies - Discharge Plan Condition: Stable Disposition: HOME Referrals: Penny Barton MD [Primary Care Provider] - Additional Instructions: Based on your history I have a concern that you may be having a gastrointestinal bleed. I am recommending that you be evaluated in the emergency room at this time. Do not take your eloquent's today until after you have been evaluated instructed to do so. Do not eat or drink anything. Go directly to the emergency room from here. - Billing Disposition and Condition Condition: STABLE Disposition: Home
== END 2019-01-04 09:39 | disposition home or self-care (01) ==
LOC: UCCORT 08:42
DX: K92.1 Melena (principal); R10.12 Left upper quadrant pain; E78.5 Hyperlipidemia, unspecified; I48.91 Unspecified atrial fibrillation; Z79.01 Long term (current) use of anticoagulants; K21.9 Gastro-esophageal reflux disease without esophagitis; Z95.1 Presence of aortocoronary bypass graft; Z95.0 Presence of cardiac pacemaker; Z90.49 Acquired absence of other specified parts of digestive tract; Z88.8 Allergy status to other drugs, medicaments and biological substances
CPT/HCPCS: 99212; G0463